=== PATIENT | male | born 1955 | race Hispanic/Latino ===

== ENCOUNTER 2016-06-19 13:41 | Outpatient (CLI) | payer MEDICARE ==
[2016-06-19 14:06] LABS: Basophils % (Auto) 0.5 % (0.0-1.8); Eosinophils % (Auto) 3.6 % (0.0-4.3); Hemoglobin 11.2 gm/dl (11.8-15.2); Mean Corpuscular HGB Conc 33 % (32-34); Mean Corpuscular Hemoglobin 31 pg (28-32); Mean Corpuscular Volume 95 fl (84-94); Platelet Count 157 K/mm3 (140-440); Red Blood Count 3.57 M/mm3 (3.65-5.03); Red Cell Distribution Width 15.1 % (13.2-15.2); White Blood Count 12.9 K/mm3 (4.5-11.0)
[2016-06-19 14:20] LABS: Albumin 3.8 g/dL (3.9-5); BUN/Creatinine Ratio 8.65; Calcium 9.9 mg/dL (8.4-10.2); Chloride 100.6 mmol/L (98-107); Phosphorous 4.4 mg/dL (2.5-4.5); Potassium 4.5 mmol/L (3.6-5.0)
--- NOTE | 2016-06-19 16:50 | Cat Scan Report ---
CT ABDOMEN AND PELVIS WITHOUT CONTRAST INDICATION: Gaseous abdominal distention. COMPARISON: 05/02/2011 FINDINGS: Abdomen and pelvis CT performed following oral contrast only. LUNG BASES: Mild bibasilar scarring, including nonspecific right lower lobe approximately 2.5 cm groundglass opacity partially imaged as on axial series 2, image 3, amongst others. Normal heart size. Few coronary calcifications. Nonspecific distal esophageal wall thickening, not excluded for gastroesophageal reflux and/or hiatal hernia, amongst others. Approximately 9 mm right paraesophageal soft tissue density, possibly a lymph node on axial series 2, image 33. ABDOMEN: Please note that sensitivity to detect small visceral lesions is limited due to the absence of intravenous contrast. Lobulated, atrophic bilateral kidneys with mild perinephric stranding and numerous bilateral renal hypodensities/cysts, the largest partly exophytic on the left measuring up to approximately 1.2 cm now noted, axial image 87, series 2. Extrarenal pelvis on the right may also be noted. Interval removal of bilateral double-J ureteral stents. Otherwise grossly unremarkable unenhanced liver, spleen, gallbladder, pancreas, adrenals, nonaneurysmal abdominal aorta with atherosclerotic aortic calcifications and the IVC. Few small, predominantly subcentimeter retroperitoneal and mesenteric lymph nodes. No ascites. Opacified GI tract nonobstructive. Normal appendix. Mild to moderate colonic stool/possible constipation. PELVIS: Grossly unremarkable seminal vesicles and non-opacified urinary bladder and rectosigmoid. Stable probable TURP. Few small prostatic calcifications. Small phleboliths. No free fluid or significant adenopathy. Advanced multilevel degenerative changes along the imaged spine have progressed, including extensive diffuse lumbar disc narrowing with vacuum phenomenon as also degenerative spurring and multilevel Schmorl's nodes with sclerosis. Some similar changes along the lower thoracic spine may also be noted. Mild dextroscoliosis apex about L1-L2 as well. CONCLUSION: 1. No acute abdominal CT abnormality or evidence of bowel obstruction. Mild constipation may be correlated for clinically in an appropriate setting. 2. Various other incidental findings, including those at the lung bases, atrophic kidneys with innumerable cysts, normal appendix, possible prior TURP and advanced multilevel spinal degenerative changes, amongst others, as detailed above. Thank you for the opportunity to participate in this patient's care.
== END 2016-06-19 13:42 | disposition home or self-care (01) ==
LOC: CT 13:41
PROVIDERS: ATTEND Internal Medicine Nephrology
DX: N18.5 Chronic kidney disease, stage 5 (principal); D63.1 Anemia in chronic kidney disease; N28.1 Cyst of kidney, acquired; I70.0 Atherosclerosis of aorta; R14.0 Abdominal distension (gaseous); J20.8 Acute bronchitis due to other specified organisms; N25.81 Secondary hyperparathyroidism of renal origin; F17.200 Nicotine dependence, unspecified, uncomplicated; R40.0 Somnolence; I25.10 Atherosclerotic heart disease of native coronary artery without angina pectoris; K21.9 Gastro-esophageal reflux disease without esophagitis; K44.9 Diaphragmatic hernia without obstruction or gangrene; N26.1 Atrophy of kidney (terminal); N42.89 Other specified disorders of prostate; I87.8 Other specified disorders of veins; M47.896 Other spondylosis, lumbar region; M41.86 Other forms of scoliosis, lumbar region; R60.9 Edema, unspecified; Z98.890 Other specified postprocedural states
CPT/HCPCS: 36415; 74176; 80048; 82040; 84100; 85025

== ENCOUNTER 2016-12-14 17:46 | Outpatient (CLI) | payer MEDICARE ==
[2016-12-14 18:30] LABS: Basophils % (Auto) 0.3 % (0.0-1.8); Eosinophils % (Auto) 3.2 % (0.0-4.3); Hematocrit 32.5 % (35.5-45.6); Hemoglobin 10.6 gm/dl (11.8-15.2); Mean Corpuscular HGB Conc 33 % (32-34); Mean Corpuscular Hemoglobin 31 pg (28-32); Mean Corpuscular Volume 93 fl (84-94); Platelet Count 187 K/mm3 (140-440); Red Blood Count 3.47 M/mm3 (3.65-5.03); Red Cell Distribution Width 14.6 % (13.2-15.2); White Blood Count 9.6 K/mm3 (4.5-11.0)
[2016-12-14 18:34] LABS: Bilirubin,Urine NEG (Negative); Blood,Urine NEG (Negative); Ketones,Urine NEG (Negative); Leukocyte Esterase,Urine NEG (Negative); Nitrite,Urine NEG (Negative); Urobilinogen,Urine < 2.0 mg/dL (<2.0); WBC,Urine < 1.0 /HPF (0.0-6.0)
[2016-12-14 18:45] LABS: Albumin 3.8 g/dL (3.9-5); BUN/Creatinine Ratio 7.73; Calcium 10.6 mg/dL (8.4-10.2); Chloride 97.9 mmol/L (98-107); Potassium 4.4 mmol/L (3.6-5.0)
[2016-12-18 01:33] LABS: Vitamin D, 25-OH, Total 45 ng/mL (30-100)
== END 2016-12-14 17:47 | disposition home or self-care (01) ==
LOC: LAB 17:46
PROVIDERS: ATTEND Internal Medicine Nephrology
DX: I12.0 Hypertensive chronic kidney disease with stage 5 chronic kidney disease or end stage renal disease (principal); N18.5 Chronic kidney disease, stage 5; N25.81 Secondary hyperparathyroidism of renal origin; E83.52 Hypercalcemia; L29.9 Pruritus, unspecified; R94.6 Abnormal results of thyroid function studies; E78.00 Pure hypercholesterolemia, unspecified; I25.10 Atherosclerotic heart disease of native coronary artery without angina pectoris; J44.9 Chronic obstructive pulmonary disease, unspecified; J45.909 Unspecified asthma, uncomplicated; D64.9 Anemia, unspecified; F41.9 Anxiety disorder, unspecified; F17.200 Nicotine dependence, unspecified, uncomplicated
CPT/HCPCS: 36415; 80048; 81001; 82040; 82306; 82570; 83970; 84100; 84156; 84439; 84443; 85025

== ENCOUNTER 2017-01-19 17:35 | Emergency (ER) | payer MEDICARE ==
[2017-01-19 18:35] LABS: Eosinophils % (Auto) 3.5 % (0.0-4.3); Hematocrit 32.4 % (35.5-45.6); Hemoglobin 10.8 gm/dl (11.8-15.2); Mean Corpuscular HGB Conc 33 % (32-34); Mean Corpuscular Hemoglobin 31 pg (28-32); Mean Corpuscular Volume 92 fl (84-94); Platelet Count 198 K/mm3 (140-440); Red Blood Count 3.51 M/mm3 (3.65-5.03); Red Cell Distribution Width 15.2 % (13.2-15.2)
[2017-01-19 18:45] LABS: BUN/Creatinine Ratio 9.77; Calcium 10.9 mg/dL (8.4-10.2); Chloride 99.2 mmol/L (98-107); Potassium 4.9 mmol/L (3.6-5.0)
--- NOTE | 2017-01-19 23:51 | Emergency Department Report ---
ED General Adult HPI - General Chief complaint: Allergic Reaction Stated complaint: ALLERGIC REACTION TO MEDICATION Time Seen by Provider: 01/19/17 23:40 Source: patient, RN notes reviewed, old records reviewed Mode of arrival: Ambulatory Limitations: No Limitations - History of Present Illness Initial comments: This is a 61-year-old male, he is previously unknown to me. He reports a past medical history of hypertension, end-stage renal disease on dialysis, anxiety, multiple medication allergies, end-stage renal disease on dialysis, depression, anemia, AV fistula in the left upper extremity. The patient complains of painful rash on the dorsal aspect of his right foot, he reports that he saw his primary care doctor, and he was given clindamycin. He reports that shortly after taking clindamycin, he developed a hoarse voice, chest tightness, sweating on his face, numbness on his fingertips, numbness on his toes, and abdominal cramping. The chest tightness does not radiate to the back, arms and neck. Patient has chronic shortness of breath. There is no posterior leg pain. There is no posterior leg swelling. No recent trips greater than 4 hours. No recent hospital admissions. Patient is concerned that he has an allergic reaction. -: Gradual Location: chest, right, lower extremity Quality: aching Consistency: intermittent Improves with: none Worsens with: none Associated Symptoms: chest pain - Related Data Home Medications Medication Instructions Recorded Confirmed Last Taken Dutasteride [Avodart] 0.5 mg PO DAILY 07/29/15 08/03/15 01/19/17 Fluticasone [Flonase] 1 spray NS QDAY 07/29/15 08/03/15 01/19/17 Folic Acid/Vit B Comp W-C [Renal 1 cap PO QDAY 07/29/15 08/03/15 01/19/17 Caps] Furosemide [Lasix TAB] 40 mg PO QDAY PRN 07/29/15 08/03/15 01/19/17 Ipratropium [Atrovent NEB] 0.5 mg IH Q4HR 07/29/15 08/03/15 01/19/17 Methyldopa [Aldomet] 500 mg PO QID 07/29/15 08/03/15 01/20/17 01:10 Ondansetron [Zofran TAB] 4 mg PO Q8HR PRN 07/29/15 08/03/15 01/19/17 cloNIDine [Catapres] 0.3 mg PO BID 07/29/15 08/03/15 01/20/17 01:09 Doxycycline Hyclate [Doxycycline 100 mg PO BID 08/03/15 08/03/15 01/19/17 Hyclate CAP] Previous Rx's Medication Instructions Recorded Last Taken Type Fluticasone Propionate [Flovent 2 puff IH BID #1 disk.w.dev 11/11/13 01/19/17 Rx Diskus] Allopurinol [Zyloprim] 100 mg PO QDAY tablet 09/10/14 01/19/17 Rx Famotidine [Pepcid] 20 mg PO QAM #60 tablet 09/10/14 01/19/17 Rx LORazepam [Ativan] 0.5 mg PO TID PRN #30 tablet 09/10/14 01/19/17 Rx Pentoxifylline [TRENtal] 400 mg PO QDAY #30 tablet 09/10/14 01/19/17 Rx Tamsulosin [Flomax] 0.4 mg PO BID #60 capsule 09/10/14 01/19/17 Rx Terazosin HCl 10 mg PO QHS #30 capsule 09/10/14 01/19/17 Rx Tiotropium [Spiriva] 18 mcg IH QDAY #30 box 09/10/14 01/19/17 Rx Arformoterol Nebu [Brovana Nebu] 15 mcg IH Q12HRT ml 08/06/15 01/19/17 Rx Budesonide [Pulmicort Respules] 0.5 mg IH Q12HRT nebu 08/06/15 01/19/17 Rx ISOSORBIDE MONOnitrate [Imdur ER] 30 mg PO DAILY #30 tablet 08/06/15 01/19/17 Rx Metoprolol [Lopressor TAB] 100 mg PO BID #60 tablet 08/06/15 01/19/17 Rx Nicotine [Habitrol] 14 mg TD Q24H #30 patch 08/06/15 01/19/17 Rx HYDROcodone/APAP 5-325 [[place] 1 - 2 each PO Q6HR PRN #60 tablet 08/07/15 Rx 5/325] EPINEPHrine [Epipen 2-Ramon] 0.3 mg IM DAILY PRN #2 ml 01/20/17 Unknown Rx Triamcinolone 0.5% [Kenalog 0.5% 1 applic TP BID #1 tube 01/20/17 Unknown Rx CREAM] Allergies Allergy/AdvReac Type Severity Reaction Status Date / Time albuterol Allergy Swelling Verified 01/19/17 17:50 albuterol sulfate Allergy Hives Verified 01/19/17 17:50 [From Ventolin HFA] amlodipine Allergy Unknown Verified 01/19/17 17:50 amlodipine besylate Allergy Swelling Verified 01/19/17 17:50 [From Norvasc] captopril Allergy Swelling Verified 01/19/17 17:50 ceftriaxone sodium Allergy Rash Verified 01/19/17 17:50 [From Rocephin] fentanyl Allergy Unknown Verified 01/19/17 17:50 guaifenesin Allergy Unknown Verified 01/19/17 17:50 hydralazine [Hydralazine] Allergy Swelling Verified 01/19/17 17:50 latex Allergy Unknown Verified 01/19/17 17:50 levofloxacin Allergy Rash Verified 01/19/17 17:50 nebivolol HCl [From Bystolic] Allergy Swelling Verified 01/19/17 17:50 nitrofurantoin Allergy Unknown Verified 01/19/17 17:50 procaine HCl [From Novocain] Allergy Swelling Verified 01/19/17 17:50 pseudoephedrine Allergy Unknown Verified 01/19/17 17:50 doxycycline AdvReac Mild Nausea Verified 01/19/17 17:50 DYE Allergy Unknown Unknown Uncoded 01/19/17 17:50 ED Review of Systems ROS: Stated complaint: ALLERGIC REACTION TO MEDICATION Other details as noted in HPI Constitutional: denies: fever Eyes: denies: vision change ENT: denies: epistaxis Respiratory: denies: cough Gastrointestinal: as per HPI Musculoskeletal: back pain, arthralgia Skin: rash, lesions Neurological: denies: weakness Psychiatric: anxiety ED Past Medical Hx - Past Medical History Previous Medical History?: Yes Hx Hypertension: Yes Hx Heart Attack/AMI: No Hx Congestive Heart Failure: No Hx Diabetes: No Hx Deep Vein Thrombosis: No Hx Renal Disease: Yes Hx Seizures: No Hx Psychiatric Treatment: Yes (Depression) Hx Asthma: Yes Hx COPD: Yes (O2 DEPENDENT [address] RODRIGUEZ) Hx Tuberculosis: No Hx HIV: No Additional medical history: Anemia - Surgical History Past Surgical History?: Yes Hx Coronary Stent: No Hx Pacemaker: No Hx Internal Defibrillator: No Additional Surgical History: AVF L upper arm - Social History Smoking Status: Current Every Day Smoker Substance Use Type: None - Medications Home Medications: Home Medications Medication Instructions Recorded Confirmed Last Taken Type Fluticasone Propionate [Flovent 2 puff IH BID #1 disk.w.dev 11/11/13 08/03/15 Rx Diskus] Allopurinol [Zyloprim] 100 mg PO QDAY tablet 09/10/14 08/03/15 01/19/17 Rx Famotidine [Pepcid] 20 mg PO QAM #60 tablet 09/10/14 08/03/15 01/19/17 Rx LORazepam [Ativan] 0.5 mg PO TID PRN #30 tablet 09/10/14 08/03/15 01/19/17 Rx Pentoxifylline [TRENtal] 400 mg PO QDAY #30 tablet 09/10/14 08/03/15 01/19/17 Rx Tamsulosin [Flomax] 0.4 mg PO BID #60 capsule 09/10/14 08/03/15 01/19/17 Rx Terazosin HCl 10 mg PO QHS #30 capsule 09/10/14 08/03/15 01/19/17 Rx Tiotropium [Spiriva] 18 mcg IH QDAY #30 box 09/10/14 08/03/15 01/19/17 Rx Dutasteride [Avodart] 0.5 mg PO DAILY 07/29/15 08/03/15 01/19/17 History Fluticasone [Flonase] 1 spray NS QDAY 07/29/15 08/03/15 01/19/17 History Folic Acid/Vit B Comp W-C [Renal 1 cap PO QDAY 07/29/15 08/03/15 01/19/17 History Caps] Furosemide [Lasix TAB] 40 mg PO QDAY PRN 07/29/15 08/03/15 01/19/17 History Ipratropium [Atrovent NEB] 0.5 mg IH Q4HR 07/29/15 08/03/15 01/19/17 History Methyldopa [Aldomet] 500 mg PO QID 07/29/15 08/03/15 01/20/17 01:10 History Ondansetron [Zofran TAB] 4 mg PO Q8HR PRN 07/29/15 08/03/15 01/19/17 History cloNIDine [Catapres] 0.3 mg PO BID 07/29/15 08/03/15 01/20/17 01:09 History Doxycycline Hyclate [Doxycycline 100 mg PO BID 08/03/15 08/03/15 01/19/17 History Hyclate CAP] Arformoterol Nebu [Brovana Nebu] 15 mcg IH Q12HRT ml 08/06/15 01/19/17 Rx Budesonide [Pulmicort Respules] 0.5 mg IH Q12HRT nebu 08/06/15 01/19/17 Rx ISOSORBIDE MONOnitrate [Imdur ER] 30 mg PO DAILY #30 tablet 08/06/15 01/19/17 Rx Metoprolol [Lopressor TAB] 100 mg PO BID #60 tablet 08/06/15 01/19/17 Rx Nicotine [Habitrol] 14 mg TD Q24H #30 patch 08/06/15 01/19/17 Rx HYDROcodone/APAP 5-325 [[place] 1 - 2 each PO Q6HR PRN #60 tablet 08/07/15 Rx 5/325] EPINEPHrine [Epipen 2-Ramon] 0.3 mg IM DAILY PRN #2 ml 01/20/17 Unknown Rx Triamcinolone 0.5% [Kenalog 0.5% 1 applic TP BID #1 tube 01/20/17 Unknown Rx CREAM] ED Physical Exam - General Limitations: No Limitations General appearance: alert, in no apparent distress - Head Head exam: Present: atraumatic, normocephalic - Eye Eye exam: Present: normal appearance, PERRL, EOMI. Absent: nystagmus - ENT ENT exam: Present: normal exam, normal orophraynx, mucous membranes moist, normal external ear exam, other (the patient is speaking full sentences. There is no stridor or dysphonia. There is no swelling of the uvula. There is no elevation of the base of the tongue.) - Neck Neck exam: Present: normal inspection, full ROM. Absent: tenderness, meningismus - Respiratory Respiratory exam: Present: normal lung sounds bilaterally. Absent: respiratory distress, wheezes, rales, rhonchi, stridor, chest wall tenderness, accessory muscle use, decreased breath sounds, prolonged expiratory - Cardiovascular Cardiovascular Exam: Present: regular rate, normal rhythm, normal heart sounds. Absent: bradycardia, tachycardia, irregular rhythm, systolic murmur, diastolic murmur, rubs, gallop - GI/Abdominal GI/Abdominal exam: Present: soft, normal bowel sounds. Absent: distended, tenderness, guarding, rebound, rigid, pulsatile mass - Rectal Rectal exam: Present: deferred - Extremities Exam Extremities exam: Present: normal inspection, full ROM, tenderness (2+ pulses noted in the bilateral upper and lower extremities. On the dorsal aspect of the right foot, there are punctate erythematous lesions which are somewhat tender. There is no streaking, there is no induration, there is no crepitus. The compartments are soft.), normal capillary refill, other (there is a left upper extremity AV fistula with an appropriate thrill. There is no redness, pus or streaking). Absent: pedal edema, joint swelling, calf tenderness - Back Exam Back exam: Present: normal inspection, full ROM. Absent: tenderness, CVA tenderness (R), CVA tenderness (L), muscle spasm, paraspinal tenderness, vertebral tenderness - Neurological Exam Neurological exam: Present: alert, oriented X3, other (Extraocular movements intact. Tongue midline. No facial droop. Facial sensation intact to light touch in the V1, V2, V3 distribution bilaterally. 5 and 5 strength in 4 extremities.. Sensation is intact to light touch in 4 extremities.). Absent: motor sensory deficit - Psychiatric Psychiatric exam: Present: anxious - Skin Skin exam: Present: warm, rash, erythema ED Course Vital Signs 01/19/17 01/20/17 01/20/17 17:42 00:59 02:31 Temperature 97.6 F Pulse Rate 67 71 Respiratory 16 14 Rate Blood Pressure 177/100 Blood Pressure 220/100 187/98 [Right] O2 Sat by Pulse 99 98 Oximetry - Reevaluation(s) Reevaluation #1: 01/20/17 00:58 Blood pressure is elevated. Patient reports that he typically takes clonidine, 0.2 mg at 6 PM, along with 250 mg of methyldopa, neither of which he was able to take today secondary to being in the waiting room. Elevated blood pressure is appreciated, however this is a chronic issue, patient has had elevated blood pressure in the past. He will be given his clonidine and methyldopa doses now, and as per the [employer] clinical policy on asymptomatic hypertension: In patients with asymptomatic markedly elevated blood pressure, does ED medical intervention reduce rates of adverse outcomes? * Level A recommendations. None specified. * Level B recommendations. None specified. * Level C recommendations. (1) In patients with asymptomatic markedly elevated blood pressure, routine ED medical intervention is not required. (2) In select patient populations (e.g, poor follow-up), emergency physicians may treat markedly elevated blood pressure in the ED and/or initiate therapy for long-term control. [Consensus recommendation] (3) Patients with asymptomatic markedly elevated blood pressure should be referred for outpatient follow-up. [Consensus recommendation] ED Medical Decision Making - Lab Data Result diagrams: 01/19/17 18:06 01/19/17 18:06 Vital Signs 01/19/17 17:42 Temperature 97.6 F Pulse Rate 67 Respiratory 16 Rate Blood Pressure 177/100 O2 Sat by Pulse 99 Oximetry Labs 01/19/17 01/19/17 01/19/17 18:06 18:06 21:40 WBC 9.0 RBC 3.51 L Hgb 10.8 L Hct 32.4 L MCV 92 MCH 31 MCHC 33 RDW 15.2 Plt Count 198 Lymph % (Auto) 33.0 Collin % (Auto) 6.6 Eos % (Auto) 3.5 Baso % (Auto) 3.0 H Lymph # 3.0 Collin # 0.6 Eos # 0.3 Baso # 0.3 H Seg Neutrophils % 53.9 Seg Neutrophils # 4.9 Sodium 139 Potassium 4.9 Chloride 99.2 Carbon Dioxide 23 Anion Gap 22 BUN 44 H Creatinine 4.5 H Estimated GFR 13 BUN/Creatinine Ratio 9.77 Glucose 95 Calcium 10.9 H Troponin T 0.018 0.019 - EKG Data -: EKG Interpreted by Me - EKG Data 01/20/17 00:36 EKG #1 demonstrates normal sinus, 63 bpm, normal intervals, normal axis, not morphologically consistent with STEMI, high left ventricular voltage, there is no prior for comparison. EKG #2 demonstrates normal sinus, 73 bpm, high left ventricular voltage, normal axis, not morphologically consistent with STEMI - Radiology Data Radiology results: image reviewed interpreted by me: X-ray the chest is hyperinflated, demonstrates no acute disease or pathology. - Medical Decision Making Differential diagnosis: Allergic reaction, now resolved, pneumonia, acute coronary syndrome, dermatitis, venous stasis Assessment and plan: 61-year-old male with a primary complaint of right dorsal foot rash, punctate, erythematous, however not confluent, has chronic venous stasis in the bilateral lower extremities, I appreciate the patient has a mild degree of tenderness, but his physical exam does not appear to be consistent with cellulitis, and I believe it to be more consistent with dermatitis. Therefore, patient is discontinued from clindamycin. The patient is speaking in full sentences, has been observed in the ER for a prolonged period of time, and his had no clinical decompensation. There are no pulmonary embolus or DVT risk factors, he is low risk by well's criteria, patient is low risk by MAR score, he is low risk by heart score, troponins negative 2, EKG unremarkable 2, the patient has a significant anxiety component. Patient will be discharged at this time, he can follow-up with an outpatient paraeducator, for his chest pain he can follow up with either her primary care doctor or anesthesiology technologist. I don't believe the patient requires admission to the hospital for ACS risk stratification. Critical care attestation.: If time is entered above; I have spent that time in minutes in the direct care of this critically ill patient, excluding procedure time. ED Disposition Clinical Impression: Rash, Anxiety, ESRD (end stage renal disease) Disposition: DC-01 TO HOME OR SELFCARE Is pt being admited?: No Does the pt Need Aspirin: No Condition: Stable Instructions: Stasis Dermatitis (ED) Additional Instructions: Rash on the dorsal right foot is most likely stasis dermatitis. Keep dry. Apply the triamcinolone cream as directed. Follow up with a paraeducator within the next 12-14 days. Please note that blood pressure was elevated in the emergency department. This needs to be followed up by a primary care doctor or nephrology specialist within the next 2 weeks. Long-term complications of hypertension/elevated blood pressure includes stroke, heart attack, disability, paralysis, loss of quality of life. Follow-up with a primary care doctor or your anesthesiology technologist within the next 3-5 days for your hypertension and chest pain. Discontinue clindamycin, at this point time, it is not necessary. He is the epinephrine pen if he develop inability to speak, inability to breathe , inability to form sentences. Return to the ER right away with pain, worsened pain, migration of pain, fevers, chills, intractable nausea or vomiting, inability to tolerate liquid feeds. Dr. Matias is a local clinical transformation specialist. Dr. Perdomo and Dr. Dominguez are local medicaid collection specialist. Prescriptions: EPINEPHrine [Epipen 2-Ramon] 0.3 mg IM DAILY PRN #2 ml PRN Reason: Allergic Reaction Triamcinolone 0.5% [Kenalog 0.5% CREAM] 1 applic TP BID #1 tube Referrals: TAMARA JERONIMO MD [Primary Care Provider] - 3-5 Days PAOLA MATIAS MD [Staff Physician] - 3-5 Days OLIMPIA BURGESS MD [Staff Physician] - 3-5 Days JAY PERDOMO MD [Staff Physician] - 3-5 Days
[2017-01-20] MEDS ORDERED: CATAPRES PO ONE (00:56)
[2017-01-20] MEDS ORDERED: ALDOMET PO ONE ×2 (00:56→00:57)
[2017-01-20 02:31] VITALS: BP 187/98
--- NOTE | 2017-01-20 09:52 | XRay Report ---
CHEST TWO VIEWS: 01/19/17 23:56 CLINICAL: Chest tightness. COMPARISON: 11/26/14 FINDINGS: Normal heart and pulmonary vasculature.The lungs are hyperexpanded and hyperlucent. A benign calcified left lower lobe granuloma is more dense than on the prior exam. Lungs are otherwise clear.Stable chronic mild midthoracic anterior wedge compression fractures and exaggerated thoracic kyphosis. Degenerative change in spine. IMPRESSION: COPD unchanged compared to the prior exam. No CHF or pneumonia. Benign left lower lobe granuloma.
== END 2017-01-20 02:36 | disposition home or self-care (01) ==
LOC: ED 17:35
DX: I12.0 Hypertensive chronic kidney disease with stage 5 chronic kidney disease or end stage renal disease (principal); N18.6 End stage renal disease; F41.9 Anxiety disorder, unspecified; F32.9 Major depressive disorder, single episode, unspecified; R21 Rash and other nonspecific skin eruption; J45.909 Unspecified asthma, uncomplicated; D64.9 Anemia, unspecified; F17.200 Nicotine dependence, unspecified, uncomplicated; Z91.040 Latex allergy status; Z88.8 Allergy status to other drugs, medicaments and biological substances; Z88.1 Allergy status to other antibiotic agents; Z91.041 Radiographic dye allergy status; Z99.2 Dependence on renal dialysis
CPT/HCPCS: 36415; 71020; 80048; 84484; 85025; 93005; 93010

== ENCOUNTER 2017-03-06 12:13 | Outpatient (CLI) | payer MEDICARE ==
--- NOTE | 2017-03-06 13:07 | XRay Report ---
Left knee: Knee pain. There is a large suprapatellar effusion. The soft tissues otherwise appear generally unremarkable. The bones are well-mineralized. There is a normal alignment of the knee joint and the articular surfaces are smooth. The joint spaces are preserved. Impressions: Nonspecific joint effusion.
--- NOTE | 2017-03-06 13:36 | XRay Report ---
RIGHT SHOULDER: Pain. Routine views demonstrate normal bony and soft tissue structures with normal joint alignment of the shoulder. IMPRESSION: Normal study.
== END 2017-03-06 12:14 | disposition home or self-care (01) ==
LOC: XRAY 12:13
PROVIDERS: ATTEND Internal Medicine Nephrology
DX: M25.462 Effusion, left knee (principal); M25.511 Pain in right shoulder

== ENCOUNTER 2017-04-20 13:50 | Outpatient (CLI) | payer MEDICARE ==
--- NOTE | 2017-04-20 15:09 | Fluoroscopy Report ---
Barium swallow with barium tablet: History: Chronic active hepatitis. Findings: Transit of barium through the esophagus appears normal in upright position and on oblique position with delayed in supine position to the GE junction . Gastroesophageal junction is above the level of the diaphragm due to presence of hernia. Evidence of esophagitis noted at the distal esophagus adjacent to the hernia. There is marked delay in transit of ingested tablet through the gastroesophageal junction probably associated with spasm. Impression: Hiatal hernia with evidence of esophagitis and spasm distal esophagus causing delayed transit of ingested tablet through the gastroesophageal junction.
== END 2017-04-20 13:51 | disposition home or self-care (01) ==
LOC: FLUORO 13:50
PROVIDERS: ATTEND Internal Medicine Gastroenterology
DX: K73.2 Chronic active hepatitis, not elsewhere classified (principal); K44.9 Diaphragmatic hernia without obstruction or gangrene; K20.9 Esophagitis, unspecified; R13.14 Dysphagia, pharyngoesophageal phase; F17.200 Nicotine dependence, unspecified, uncomplicated
CPT/HCPCS: 74220

== ENCOUNTER 2017-06-01 13:45 | Outpatient (CLI) | payer MEDICARE ==
--- NOTE | 2017-06-02 09:42 | Ultrasound Report ---
RENAL ULTRASOUND: 06/01/17 13:30:00 CLINICAL: Renal insufficiency. COMPARISON: 03/28/16 FINDINGS: High resolution ultrasound demonstrated normal nondilated renal collecting systems and ureters. Bilateral echogenic kidneys with irregular contours and somewhat poorly defined margins. Prominent bilateral medullary pyramids and a few small bilateral renal cysts. A single echogenic focus in the lower midportion of the right kidney is suggestive of a calculus measuring 5 mm. However it is not duplicated on multiple views. The right kidney measures 9.7 x 6.0 x 6.4-cm. The renal parenchyma measures 1.2-cm in thickness. The left kidney measures 6.6 x 4.6 x 3.8-cm. The renal parenchyma measures 1.1-cm in thickness. Small unremarkable urinary bladder. IMPRESSION: Severe bilateral medical renal disease without hydronephrosis. Bilateral renal parenchymal loss and scarring. Possible 5 mm nonobstructive calculus in the lower midportion of the right kidney. A few small bilateral renal cysts.
== END 2017-06-01 13:46 | disposition home or self-care (01) ==
LOC: CT 13:45
PROVIDERS: ATTEND Urology
DX: N28.1 Cyst of kidney, acquired (principal); N28.9 Disorder of kidney and ureter, unspecified; I25.10 Atherosclerotic heart disease of native coronary artery without angina pectoris; J44.9 Chronic obstructive pulmonary disease, unspecified; J45.909 Unspecified asthma, uncomplicated; F17.200 Nicotine dependence, unspecified, uncomplicated
CPT/HCPCS: 76770

== ENCOUNTER 2017-06-22 15:22 | Outpatient (CLI) | payer MEDICARE ==
[2017-06-22 15:43] LABS: Hematocrit 30.4 % (35.5-45.6); Mean Corpuscular HGB Conc 33 % (32-34); Mean Corpuscular Hemoglobin 31 pg (28-32); Mean Corpuscular Volume 96 fl (84-94); Platelet Count 173 K/mm3 (140-440); Red Blood Count 3.18 M/mm3 (3.65-5.03); Red Cell Distribution Width 14.6 % (13.2-15.2)
[2017-06-22 15:47] LABS: Bilirubin,Urine NEG (Negative); Blood,Urine NEG (Negative); Color,Urine Yellow (Yellow); Nitrite,Urine NEG (Negative); Urobilinogen,Urine < 2.0 mg/dL (<2.0); WBC,Urine < 1.0 /HPF (0.0-6.0)
[2017-06-22 16:13] LABS: Albumin 3.6 g/dL (3.9-5); Calcium 9.6 mg/dL (8.4-10.2)
[2017-06-22 16:21] LABS: Creatinine,Urine 57.3 mg/dL (0.1-20.0); Protein/Creatinine Ratio,Urine 1.52
== END 2017-06-22 15:23 | disposition home or self-care (01) ==
LOC: LAB 15:22
PROVIDERS: ATTEND Internal Medicine Nephrology
DX: I12.0 Hypertensive chronic kidney disease with stage 5 chronic kidney disease or end stage renal disease (principal); N18.5 Chronic kidney disease, stage 5; N25.81 Secondary hyperparathyroidism of renal origin; E83.52 Hypercalcemia; L29.9 Pruritus, unspecified; F17.200 Nicotine dependence, unspecified, uncomplicated; Z79.899 Other long term (current) drug therapy
CPT/HCPCS: 36415; 80048; 81001; 82040; 82306; 82570; 83970; 84100; 84156; 85027

== ENCOUNTER 2018-01-25 15:58 | Outpatient (CLI) | payer OTHER, MEDICARE ==
[2018-01-25 16:36] LABS: Basophils # (Auto) 0.1 K/mm3 (0.0-0.1); Basophils % (Auto) 0.9 % (0.0-1.8); Eosinophils # (Auto) 0.2 K/mm3 (0.0-0.4); Eosinophils % (Auto) 1.8 % (0.0-4.3); Hematocrit 36.2 % (35.5-45.6); Hemoglobin 11.9 gm/dl (11.8-15.2); Lymphocytes % (Auto) 26.2 % (13.4-35.0); Mean Corpuscular HGB Conc 33 % (32-34); Mean Corpuscular Hemoglobin 33 pg (28-32); Mean Corpuscular Volume 100 fl (84-94); Monocytes # (Auto) 0.7 K/mm3 (0.0-0.8); Monocytes % (Auto) 6.2 % (0.0-7.3); Platelet Count 140 K/mm3 (140-440); Red Blood Count 3.64 M/mm3 (3.65-5.03); Red Cell Distribution Width 16.3 % (13.2-15.2)
[2018-01-25 16:45] LABS: Creatinine 24 Hour,Urine 0.9 (0.8-2.8); Creatinine,Urine 40.9 mg/dL (0.1-20.0)
[2018-01-25 16:46] LABS: Albumin 3.9 g/dL (3.9-5)
[2018-01-25 16:46] LABS: Creatinine,Urine 42.8 mg/dL (0.1-20.0); Protein/Creatinine Ratio,Urine 1.24
== END 2018-01-25 15:59 | disposition home or self-care (01) ==
LOC: LAB 15:58
PROVIDERS: ATTEND Internal Medicine
DX: I12.0 Hypertensive chronic kidney disease with stage 5 chronic kidney disease or end stage renal disease (principal); N18.6 End stage renal disease; I25.10 Atherosclerotic heart disease of native coronary artery without angina pectoris; K21.9 Gastro-esophageal reflux disease without esophagitis; J44.9 Chronic obstructive pulmonary disease, unspecified; F17.210 Nicotine dependence, cigarettes, uncomplicated
CPT/HCPCS: 36415; 80048; 82040; 82570; 84100; 84156; 85025

== ENCOUNTER 2018-08-06 16:17 | Outpatient (CLI) | payer MEDICARE ==
[2018-08-06 17:09] LABS: Hematocrit 31.3 % (35.5-45.6); Hemoglobin 10.5 gm/dl (11.8-15.2)
[2018-08-06 17:32] LABS: Albumin 3.5 g/dL (3.9-5); Calcium 10.2 mg/dL (8.4-10.2)
== END 2018-08-06 16:18 | disposition home or self-care (01) ==
LOC: LAB 16:17
PROVIDERS: ATTEND Internal Medicine Nephrology
DX: I12.0 Hypertensive chronic kidney disease with stage 5 chronic kidney disease or end stage renal disease (principal); N18.6 End stage renal disease; N25.81 Secondary hyperparathyroidism of renal origin; E83.52 Hypercalcemia; K21.9 Gastro-esophageal reflux disease without esophagitis; J44.9 Chronic obstructive pulmonary disease, unspecified; Z87.891 Personal history of nicotine dependence
CPT/HCPCS: 36415; 80048; 82040; 83970; 84100; 85014; 85018

== ENCOUNTER 2018-10-22 16:09 | Outpatient (CLI) | payer MEDICARE ==
[2018-10-22 17:07] LABS: Hepatitis C Virus Antibody Reactive (NonReactive)
== END 2018-10-22 16:10 | disposition home or self-care (01) ==
LOC: LAB 16:09
PROVIDERS: ATTEND Internal Medicine Nephrology
DX: I12.0 Hypertensive chronic kidney disease with stage 5 chronic kidney disease or end stage renal disease (principal); N18.6 End stage renal disease; J43.9 Emphysema, unspecified; Z11.59 Encounter for screening for other viral diseases
CPT/HCPCS: 36415; 86705; 86706; 86803

== ENCOUNTER 2018-12-06 16:44 | Outpatient (CLI) | payer MEDICARE ==
[2018-12-06 17:26] LABS: Basophils # (Auto) 0.2 K/mm3 (0.0-0.1); Basophils % (Auto) 1.6 % (0.0-1.8); Eosinophils # (Auto) 0.6 K/mm3 (0.0-0.4); Eosinophils % (Auto) 5.3 % (0.0-4.3); Hemoglobin 9.8 gm/dl (11.8-15.2); Lymphocytes # (Auto) 4.2 K/mm3 (1.2-5.4); Lymphocytes % (Auto) 39.3 % (13.4-35.0); Mean Corpuscular HGB Conc 34 % (32-34); Mean Corpuscular Volume 96 fl (84-94); Monocytes # (Auto) 0.8 K/mm3 (0.0-0.8); Monocytes % (Auto) 7.1 % (0.0-7.3); Platelet Count 147 K/mm3 (140-440); Red Blood Count 3.03 M/mm3 (3.65-5.03); Red Cell Distribution Width 15.5 % (13.2-15.2)
[2018-12-06 17:40] LABS: Albumin 3.6 g/dL (3.9-5); Calcium 10.4 mg/dL (8.4-10.2)
[2018-12-06 17:41] LABS: Bilirubin,Urine NEG (Negative); Blood,Urine NEG (Negative); Color,Urine Yellow (Yellow); Mucus,Urine FEW /HPF; Urobilinogen,Urine < 2.0 mg/dL (<2.0); WBC,Urine < 1.0 /HPF (0.0-6.0)
== END 2018-12-06 16:45 | disposition home or self-care (01) ==
LOC: LAB 16:44
PROVIDERS: ATTEND Internal Medicine Nephrology
DX: I12.0 Hypertensive chronic kidney disease with stage 5 chronic kidney disease or end stage renal disease (principal); N18.6 End stage renal disease; K21.9 Gastro-esophageal reflux disease without esophagitis; J43.9 Emphysema, unspecified
CPT/HCPCS: 36415; 80048; 81001; 82040; 84100; 84156; 85025; 87086

== ENCOUNTER 2019-02-24 10:57 | Outpatient (CLI) | payer MEDICARE ==
[2019-02-24] MEDS ORDERED: XYLOCAINE TOPICAL 4% TP ONE (11:24)
== END 2019-02-24 10:58 | disposition home or self-care (01) ==
LOC: WOUND 10:57
PROVIDERS: ATTEND Surgery
DX: I87.332 Chronic venous hypertension (idiopathic) with ulcer and inflammation of left lower extremity (principal); L97.822 Non-pressure chronic ulcer of other part of left lower leg with fat layer exposed; I12.0 Hypertensive chronic kidney disease with stage 5 chronic kidney disease or end stage renal disease; N18.6 End stage renal disease; I87.2 Venous insufficiency (chronic) (peripheral); M10.9 Gout, unspecified; N40.0 Benign prostatic hyperplasia without lower urinary tract symptoms; J44.9 Chronic obstructive pulmonary disease, unspecified; K21.9 Gastro-esophageal reflux disease without esophagitis; F41.9 Anxiety disorder, unspecified; F32.9 Major depressive disorder, single episode, unspecified; F40.240 Claustrophobia; F17.290 Nicotine dependence, other tobacco product, uncomplicated
CPT/HCPCS: 11042; 11045; 87076; 87116; 87186; G0463; 99205; 99215

== ENCOUNTER 2019-03-10 13:19 | Outpatient (CLI) | payer MEDICARE | END 2019-03-10 13:20 | disposition home or self-care (01) | LOC: WOUND 13:19 | PROVIDERS: ATTEND Surgery | DX: L97.822 Non-pressure chronic ulcer of other part of left lower leg with fat layer exposed (principal); J44.9 Chronic obstructive pulmonary disease, unspecified; I12.0 Hypertensive chronic kidney disease with stage 5 chronic kidney disease or end stage renal disease; N18.6 End stage renal disease; I87.2 Venous insufficiency (chronic) (peripheral); M10.9 Gout, unspecified; F17.210 Nicotine dependence, cigarettes, uncomplicated ==

== ENCOUNTER 2019-03-17 12:54 | Outpatient (CLI) | payer MEDICARE ==
[2019-03-17] MEDS ORDERED: XYLOCAINE TOPICAL 4% TP ONE (13:26)
[2019-03-17] MEDS ORDERED: AD OINTMENT TP PRN (14:09)
== END 2019-03-17 12:55 | disposition home or self-care (01) ==
LOC: WOUND 12:54
PROVIDERS: ATTEND Surgery
DX: L97.822 Non-pressure chronic ulcer of other part of left lower leg with fat layer exposed (principal); I12.0 Hypertensive chronic kidney disease with stage 5 chronic kidney disease or end stage renal disease; N18.6 End stage renal disease; I87.2 Venous insufficiency (chronic) (peripheral); J44.9 Chronic obstructive pulmonary disease, unspecified; M10.9 Gout, unspecified; N40.0 Benign prostatic hyperplasia without lower urinary tract symptoms
CPT/HCPCS: A6250

== ENCOUNTER 2019-03-24 12:45 | Outpatient (CLI) | payer MEDICARE ==
[2019-03-24] MEDS ORDERED: XYLOCAINE TOPICAL 4% TP ONE (13:03)
[2019-03-24] MEDS ORDERED: SILVER NITRATE TP ONE (13:03)
[2019-03-24] MEDS ORDERED: AD OINTMENT TP PRN (13:27)
== END 2019-03-24 12:46 | disposition home or self-care (01) ==
LOC: WOUND 12:45
PROVIDERS: ATTEND Surgery
DX: L97.822 Non-pressure chronic ulcer of other part of left lower leg with fat layer exposed (principal); I12.0 Hypertensive chronic kidney disease with stage 5 chronic kidney disease or end stage renal disease; N18.6 End stage renal disease; I87.2 Venous insufficiency (chronic) (peripheral); J44.9 Chronic obstructive pulmonary disease, unspecified; M10.9 Gout, unspecified; N40.0 Benign prostatic hyperplasia without lower urinary tract symptoms
CPT/HCPCS: A6250

== ENCOUNTER 2019-03-31 12:55 | Outpatient (CLI) | payer MEDICARE ==
[2019-03-31] MEDS ORDERED: LIDOCAINE (4%) 40 MG/ML TOPICAL SOLN 50 ML BOTTLE TP ONE (13:30)
== END 2019-03-31 12:56 | disposition home or self-care (01) ==
LOC: WOUND 12:55
PROVIDERS: ATTEND Surgery
DX: L97.822 Non-pressure chronic ulcer of other part of left lower leg with fat layer exposed (principal); I12.0 Hypertensive chronic kidney disease with stage 5 chronic kidney disease or end stage renal disease; N18.6 End stage renal disease; I87.2 Venous insufficiency (chronic) (peripheral); J44.9 Chronic obstructive pulmonary disease, unspecified; M10.9 Gout, unspecified; N40.0 Benign prostatic hyperplasia without lower urinary tract symptoms

== ENCOUNTER 2019-04-14 13:03 | Outpatient (CLI) | payer MEDICARE ==
[2019-04-14] MEDS ORDERED: LIDOCAINE (4%) 40 MG/ML TOPICAL SOLN 50 ML BOTTLE TP ONE (14:02)
[2019-04-14] MEDS ORDERED: SODIUM CHLORIDE 0.9% IRR 500 ML BOTTLE IR ONE (14:09)
[2019-04-14] MEDS ORDERED: VITAMIN A & D OINT 56.7 GM TP SCH (15:00)
== END 2019-04-14 13:04 | disposition home or self-care (01) ==
LOC: WOUND 13:03
PROVIDERS: ATTEND Surgery
DX: L97.822 Non-pressure chronic ulcer of other part of left lower leg with fat layer exposed (principal); I12.0 Hypertensive chronic kidney disease with stage 5 chronic kidney disease or end stage renal disease; N18.6 End stage renal disease; I87.2 Venous insufficiency (chronic) (peripheral); J44.9 Chronic obstructive pulmonary disease, unspecified; M10.9 Gout, unspecified; N40.0 Benign prostatic hyperplasia without lower urinary tract symptoms

== ENCOUNTER 2019-05-07 14:15 | Outpatient (CLI) | payer MEDICARE ==
[2019-05-07 14:50] LABS: Hematocrit 25.9 % (35.5-45.6); Hemoglobin 8.3 gm/dl (11.8-15.2)
[2019-05-07 15:10] LABS: Albumin 3.5 g/dL (3.9-5); Calcium 10.2 mg/dL (8.4-10.2)
[2019-05-07 15:22] LABS: Hepatitis B Surface Antigen Non-Reactive (Negative); Hepatitis C Virus Antibody Reactive (NonReactive)
== END 2019-05-07 14:16 | disposition home or self-care (01) ==
LOC: LAB 14:15
PROVIDERS: ATTEND Internal Medicine Nephrology
DX: I12.0 Hypertensive chronic kidney disease with stage 5 chronic kidney disease or end stage renal disease (principal); N18.6 End stage renal disease; N25.81 Secondary hyperparathyroidism of renal origin; J44.9 Chronic obstructive pulmonary disease, unspecified; K21.9 Gastro-esophageal reflux disease without esophagitis; M10.9 Gout, unspecified; R94.5 Abnormal results of liver function studies
CPT/HCPCS: 36415; 80048; 80074; 82040; 83970; 84100; 85014; 85018

== ENCOUNTER 2019-05-19 10:01 | Outpatient (CLI) | payer MEDICARE ==
[2019-05-19] MEDS ORDERED: SODIUM CHLORIDE 0.9% IRR 500 ML BOTTLE IR ONE (10:11)
[2019-05-19] MEDS ORDERED: LIDOCAINE (4%) 40 MG/ML TOPICAL SOLN 50 ML BOTTLE TP ONE (10:30)
== END 2019-05-19 10:02 | disposition home or self-care (01) ==
LOC: WOUND 10:01
PROVIDERS: ATTEND Surgery
DX: L97.822 Non-pressure chronic ulcer of other part of left lower leg with fat layer exposed (principal); I12.0 Hypertensive chronic kidney disease with stage 5 chronic kidney disease or end stage renal disease; N18.6 End stage renal disease; I87.2 Venous insufficiency (chronic) (peripheral); J44.9 Chronic obstructive pulmonary disease, unspecified; M10.9 Gout, unspecified; N40.0 Benign prostatic hyperplasia without lower urinary tract symptoms
CPT/HCPCS: 87075; 87076; 87116; 87186

== ENCOUNTER 2019-05-23 15:13 | Outpatient (CLI) | payer MEDICARE ==
[2019-05-23 15:41] LABS: Basophils # (Auto) 0.1 K/mm3 (0.0-0.1); Basophils % (Auto) 1.1 % (0.0-1.8); Eosinophils # (Auto) 0.2 K/mm3 (0.0-0.4); Eosinophils % (Auto) 2.1 % (0.0-4.3); Hematocrit 27.7 % (35.5-45.6); Lymphocytes # (Auto) 1.8 K/mm3 (1.2-5.4); Lymphocytes % (Auto) 16.7 % (13.4-35.0); Mean Corpuscular HGB Conc 33 % (32-34); Mean Corpuscular Volume 91 fl (84-94); Monocytes # (Auto) 0.6 K/mm3 (0.0-0.8); Monocytes % (Auto) 5.4 % (0.0-7.3); Platelet Count 229 K/mm3 (140-440); Red Blood Count 3.04 M/mm3 (3.65-5.03); Red Cell Distribution Width 16.3 % (13.2-15.2)
[2019-05-23 15:46] LABS: Creatinine 24 Hour,Urine 0.8 (0.8-2.8); Creatinine,Urine 28.5 mg/dL (0.1-20.0)
[2019-05-23 15:54] LABS: Albumin 3.5 g/dL (3.9-5); Calcium 10.3 mg/dL (8.4-10.2)
[2019-05-23 16:48] LABS: Hepatitis B Surface Antigen Non-Reactive (Negative); Hepatitis C Virus Antibody Reactive (NonReactive)
== END 2019-05-23 15:14 | disposition home or self-care (01) ==
LOC: LAB 15:13
PROVIDERS: ATTEND Internal Medicine
DX: I12.0 Hypertensive chronic kidney disease with stage 5 chronic kidney disease or end stage renal disease (principal); N18.6 End stage renal disease; M10.9 Gout, unspecified; J44.9 Chronic obstructive pulmonary disease, unspecified; K21.9 Gastro-esophageal reflux disease without esophagitis; R94.5 Abnormal results of liver function studies; Z88.1 Allergy status to other antibiotic agents; Z88.8 Allergy status to other drugs, medicaments and biological substances
CPT/HCPCS: 36415; 80053; 80074; 82570; 84156; 85025

== ENCOUNTER 2019-06-05 13:46 | Outpatient (CLI) | payer MEDICARE ==
[2019-06-05 14:40] LABS: Albumin 3.4 g/dL (3.9-5); Calcium 10.3 mg/dL (8.4-10.2)
== END 2019-06-05 13:47 | disposition home or self-care (01) ==
LOC: LAB 13:46
PROVIDERS: ATTEND Student in an Organized Health Care Education/Training Program
DX: I13.2 Hypertensive heart and chronic kidney disease with heart failure and with stage 5 chronic kidney disease, or end stage renal disease (principal); N18.6 End stage renal disease; N25.81 Secondary hyperparathyroidism of renal origin; D63.1 Anemia in chronic kidney disease; E83.52 Hypercalcemia; L08.89 Other specified local infections of the skin and subcutaneous tissue; I73.9 Peripheral vascular disease, unspecified; Z72.0 Tobacco use
CPT/HCPCS: 36415; 80048; 82040; 84100

== ENCOUNTER 2019-06-27 12:59 | Outpatient (CLI) | payer MEDICARE ==
[2019-06-27] MEDS ORDERED: LIDOCAINE (4%) 40 MG/ML TOPICAL SOLN 50 ML BOTTLE TP ONE (13:01)
== END 2019-06-27 13:00 | disposition home or self-care (01) ==
LOC: WOUND 12:59
PROVIDERS: ATTEND Surgery
DX: L97.822 Non-pressure chronic ulcer of other part of left lower leg with fat layer exposed (principal); L97.522 Non-pressure chronic ulcer of other part of left foot with fat layer exposed; J44.9 Chronic obstructive pulmonary disease, unspecified; I12.0 Hypertensive chronic kidney disease with stage 5 chronic kidney disease or end stage renal disease; N18.6 End stage renal disease; I87.2 Venous insufficiency (chronic) (peripheral); M10.9 Gout, unspecified; F17.210 Nicotine dependence, cigarettes, uncomplicated; N40.0 Benign prostatic hyperplasia without lower urinary tract symptoms
CPT/HCPCS: 29581

== ENCOUNTER 2019-07-03 14:16 | Outpatient (CLI) | payer MEDICARE ==
[2019-07-03] MEDS ORDERED: VITAMIN A & D OINT 56.7 GM TP SCH (15:00)
== END 2019-07-03 14:17 | disposition home or self-care (01) ==
LOC: WOUND 14:16
PROVIDERS: ATTEND Surgery
DX: I87.332 Chronic venous hypertension (idiopathic) with ulcer and inflammation of left lower extremity (principal); L97.822 Non-pressure chronic ulcer of other part of left lower leg with fat layer exposed; L97.521 Non-pressure chronic ulcer of other part of left foot limited to breakdown of skin; I12.0 Hypertensive chronic kidney disease with stage 5 chronic kidney disease or end stage renal disease; N18.6 End stage renal disease; J44.9 Chronic obstructive pulmonary disease, unspecified; M10.9 Gout, unspecified; N40.0 Benign prostatic hyperplasia without lower urinary tract symptoms; F17.210 Nicotine dependence, cigarettes, uncomplicated
CPT/HCPCS: 29581; A6250

== ENCOUNTER 2019-07-07 13:47 | Outpatient (CLI) | payer MEDICARE ==
[2019-07-07] MEDS ORDERED: LIDOCAINE (4%) 40 MG/ML TOPICAL SOLN 50 ML BOTTLE TP ONE (14:15)
== END 2019-07-07 13:48 | disposition home or self-care (01) ==
LOC: WOUND 13:47
PROVIDERS: ATTEND Surgery
DX: I87.332 Chronic venous hypertension (idiopathic) with ulcer and inflammation of left lower extremity (principal); L97.822 Non-pressure chronic ulcer of other part of left lower leg with fat layer exposed; L97.521 Non-pressure chronic ulcer of other part of left foot limited to breakdown of skin; I12.0 Hypertensive chronic kidney disease with stage 5 chronic kidney disease or end stage renal disease; N18.6 End stage renal disease; J44.9 Chronic obstructive pulmonary disease, unspecified; M10.9 Gout, unspecified; N40.0 Benign prostatic hyperplasia without lower urinary tract symptoms; F17.210 Nicotine dependence, cigarettes, uncomplicated
CPT/HCPCS: 29581

== ENCOUNTER 2019-07-08 11:25 | Outpatient (CLI) | payer MEDICARE | END 2019-07-08 11:26 | disposition home or self-care (01) | LOC: WOUND 11:25 | PROVIDERS: ATTEND Surgery | DX: I87.332 Chronic venous hypertension (idiopathic) with ulcer and inflammation of left lower extremity (principal); L97.822 Non-pressure chronic ulcer of other part of left lower leg with fat layer exposed; L97.521 Non-pressure chronic ulcer of other part of left foot limited to breakdown of skin; I12.0 Hypertensive chronic kidney disease with stage 5 chronic kidney disease or end stage renal disease; N18.6 End stage renal disease; J44.9 Chronic obstructive pulmonary disease, unspecified; M10.9 Gout, unspecified; N40.0 Benign prostatic hyperplasia without lower urinary tract symptoms; F17.210 Nicotine dependence, cigarettes, uncomplicated | CPT/HCPCS: 29581 ==

== ENCOUNTER 2019-07-10 13:53 | Outpatient (CLI) | payer MEDICARE | END 2019-07-10 13:54 | disposition home or self-care (01) | LOC: WOUND 13:53 | PROVIDERS: ATTEND Surgery | DX: I87.332 Chronic venous hypertension (idiopathic) with ulcer and inflammation of left lower extremity (principal); L97.821 Non-pressure chronic ulcer of other part of left lower leg limited to breakdown of skin; L97.521 Non-pressure chronic ulcer of other part of left foot limited to breakdown of skin; I12.0 Hypertensive chronic kidney disease with stage 5 chronic kidney disease or end stage renal disease; N18.6 End stage renal disease; J44.9 Chronic obstructive pulmonary disease, unspecified; M10.9 Gout, unspecified; N40.0 Benign prostatic hyperplasia without lower urinary tract symptoms; F17.210 Nicotine dependence, cigarettes, uncomplicated | CPT/HCPCS: 29581 ==

== ENCOUNTER 2019-07-14 13:52 | Outpatient (CLI) | payer MEDICARE ==
[2019-07-14] MEDS ORDERED: LIDOCAINE (4%) 40 MG/ML TOPICAL SOLN 50 ML BOTTLE TP ONE (14:45)
[2019-07-14] MEDS ORDERED: SILVER NITRATE APPLICATOR 1 EA TP ONE (14:46)
== END 2019-07-14 13:53 | disposition home or self-care (01) ==
LOC: WOUND 13:52
PROVIDERS: ATTEND Surgery
DX: I87.332 Chronic venous hypertension (idiopathic) with ulcer and inflammation of left lower extremity (principal); L97.822 Non-pressure chronic ulcer of other part of left lower leg with fat layer exposed; L97.521 Non-pressure chronic ulcer of other part of left foot limited to breakdown of skin; I12.0 Hypertensive chronic kidney disease with stage 5 chronic kidney disease or end stage renal disease; N18.6 End stage renal disease; J44.9 Chronic obstructive pulmonary disease, unspecified; M10.9 Gout, unspecified; N40.0 Benign prostatic hyperplasia without lower urinary tract symptoms; F17.210 Nicotine dependence, cigarettes, uncomplicated
CPT/HCPCS: 29581

== ENCOUNTER 2019-07-18 10:43 | Outpatient (CLI) | payer MEDICARE | END 2019-07-18 10:44 | disposition home or self-care (01) | LOC: WOUND 10:43 | PROVIDERS: ATTEND Surgery | DX: I87.332 Chronic venous hypertension (idiopathic) with ulcer and inflammation of left lower extremity (principal); L97.821 Non-pressure chronic ulcer of other part of left lower leg limited to breakdown of skin; L97.521 Non-pressure chronic ulcer of other part of left foot limited to breakdown of skin; N18.6 End stage renal disease; I12.0 Hypertensive chronic kidney disease with stage 5 chronic kidney disease or end stage renal disease; J44.9 Chronic obstructive pulmonary disease, unspecified; M10.9 Gout, unspecified; N40.0 Benign prostatic hyperplasia without lower urinary tract symptoms; F17.210 Nicotine dependence, cigarettes, uncomplicated | CPT/HCPCS: 29581; 87076; 87116; 87186 ==

== ENCOUNTER 2019-07-21 13:54 | Outpatient (CLI) | payer MEDICARE ==
[2019-07-21] MEDS ORDERED: LIDOCAINE (4%) 40 MG/ML TOPICAL SOLN 50 ML BOTTLE TP ONE (14:30)
== END 2019-07-21 13:55 | disposition home or self-care (01) ==
LOC: WOUND 13:54
PROVIDERS: ATTEND Surgery
DX: I87.332 Chronic venous hypertension (idiopathic) with ulcer and inflammation of left lower extremity (principal); L97.822 Non-pressure chronic ulcer of other part of left lower leg with fat layer exposed; L97.522 Non-pressure chronic ulcer of other part of left foot with fat layer exposed; N18.6 End stage renal disease; I12.0 Hypertensive chronic kidney disease with stage 5 chronic kidney disease or end stage renal disease; J44.9 Chronic obstructive pulmonary disease, unspecified; M10.9 Gout, unspecified; N40.0 Benign prostatic hyperplasia without lower urinary tract symptoms; F17.210 Nicotine dependence, cigarettes, uncomplicated
CPT/HCPCS: 29581

== ENCOUNTER 2019-07-24 15:02 | Outpatient (CLI) | payer MEDICARE | END 2019-07-24 15:03 | disposition home or self-care (01) | LOC: WOUND 15:02 | PROVIDERS: ATTEND Surgery | DX: I87.332 Chronic venous hypertension (idiopathic) with ulcer and inflammation of left lower extremity (principal); L97.822 Non-pressure chronic ulcer of other part of left lower leg with fat layer exposed; L97.522 Non-pressure chronic ulcer of other part of left foot with fat layer exposed; N18.6 End stage renal disease; I12.0 Hypertensive chronic kidney disease with stage 5 chronic kidney disease or end stage renal disease; J44.9 Chronic obstructive pulmonary disease, unspecified; M10.9 Gout, unspecified; N40.0 Benign prostatic hyperplasia without lower urinary tract symptoms; F17.210 Nicotine dependence, cigarettes, uncomplicated | CPT/HCPCS: 29581 ==

== ENCOUNTER 2019-07-28 14:03 | Outpatient (CLI) | payer MEDICARE ==
[2019-07-28] MEDS ORDERED: LIDOCAINE (4%) 40 MG/ML TOPICAL SOLN 50 ML BOTTLE TP ONE (14:12)
== END 2019-07-28 14:04 | disposition home or self-care (01) ==
LOC: WOUND 14:03
PROVIDERS: ATTEND Surgery
DX: I87.332 Chronic venous hypertension (idiopathic) with ulcer and inflammation of left lower extremity (principal); L97.822 Non-pressure chronic ulcer of other part of left lower leg with fat layer exposed; L97.522 Non-pressure chronic ulcer of other part of left foot with fat layer exposed; N18.6 End stage renal disease; I12.0 Hypertensive chronic kidney disease with stage 5 chronic kidney disease or end stage renal disease; J44.9 Chronic obstructive pulmonary disease, unspecified; M10.9 Gout, unspecified; N40.0 Benign prostatic hyperplasia without lower urinary tract symptoms; F17.210 Nicotine dependence, cigarettes, uncomplicated
CPT/HCPCS: 29581

== ENCOUNTER 2019-07-28 15:39 | Outpatient (CLI) | payer MEDICARE ==
[2019-07-28 16:38] LABS: Albumin 3.7 g/dL (3.9-5); Calcium 10.6 mg/dL (8.4-10.2)
== END 2019-07-28 15:40 | disposition home or self-care (01) ==
LOC: LAB 15:39
PROVIDERS: ATTEND Student in an Organized Health Care Education/Training Program
DX: N18.6 End stage renal disease (principal); R53.1 Weakness; E87.2 Acidosis; N13.9 Obstructive and reflux uropathy, unspecified; N17.9 Acute kidney failure, unspecified
CPT/HCPCS: 36415; 80048; 82040; 84100

== ENCOUNTER 2019-08-04 13:42 | Outpatient (CLI) | payer MEDICARE ==
[2019-08-04] MEDS ORDERED: LIDOCAINE (4%) 40 MG/ML TOPICAL SOLN 50 ML BOTTLE TP ONE (13:44)
[2019-08-04] MEDS ORDERED: VITAMIN A & D OINT 56.7 GM TP SCH (15:00)
== END 2019-08-04 13:43 | disposition home or self-care (01) ==
LOC: WOUND 13:42
PROVIDERS: ATTEND Surgery
DX: I87.332 Chronic venous hypertension (idiopathic) with ulcer and inflammation of left lower extremity (principal); L97.822 Non-pressure chronic ulcer of other part of left lower leg with fat layer exposed; L97.522 Non-pressure chronic ulcer of other part of left foot with fat layer exposed; N18.6 End stage renal disease; I12.0 Hypertensive chronic kidney disease with stage 5 chronic kidney disease or end stage renal disease; J44.9 Chronic obstructive pulmonary disease, unspecified; M10.9 Gout, unspecified; N40.0 Benign prostatic hyperplasia without lower urinary tract symptoms; F17.210 Nicotine dependence, cigarettes, uncomplicated
CPT/HCPCS: 29581

== ENCOUNTER 2019-08-07 14:25 | Outpatient (CLI) | payer MEDICARE | END 2019-08-07 14:26 | disposition home or self-care (01) | LOC: WOUND 14:25 | PROVIDERS: ATTEND Surgery | DX: I87.332 Chronic venous hypertension (idiopathic) with ulcer and inflammation of left lower extremity (principal); L97.822 Non-pressure chronic ulcer of other part of left lower leg with fat layer exposed; L97.522 Non-pressure chronic ulcer of other part of left foot with fat layer exposed; N18.6 End stage renal disease; I12.0 Hypertensive chronic kidney disease with stage 5 chronic kidney disease or end stage renal disease; J44.9 Chronic obstructive pulmonary disease, unspecified; M10.9 Gout, unspecified; N40.0 Benign prostatic hyperplasia without lower urinary tract symptoms; F17.210 Nicotine dependence, cigarettes, uncomplicated | CPT/HCPCS: 29581 ==

== ENCOUNTER 2019-08-11 13:38 | Outpatient (CLI) | payer MEDICARE ==
[2019-08-11] MEDS ORDERED: LIDOCAINE (4%) 40 MG/ML TOPICAL SOLN 50 ML BOTTLE TP ONE (14:05)
[2019-08-11] MEDS ORDERED: SILVER NITRATE APPLICATOR 1 EA TP ONE (14:41)
== END 2019-08-11 13:39 | disposition home or self-care (01) ==
LOC: WOUND 13:38
PROVIDERS: ATTEND Surgery
DX: I87.332 Chronic venous hypertension (idiopathic) with ulcer and inflammation of left lower extremity (principal); L97.822 Non-pressure chronic ulcer of other part of left lower leg with fat layer exposed; L97.522 Non-pressure chronic ulcer of other part of left foot with fat layer exposed; N18.6 End stage renal disease; I12.0 Hypertensive chronic kidney disease with stage 5 chronic kidney disease or end stage renal disease; J44.9 Chronic obstructive pulmonary disease, unspecified; M10.9 Gout, unspecified; N40.0 Benign prostatic hyperplasia without lower urinary tract symptoms; F17.210 Nicotine dependence, cigarettes, uncomplicated
CPT/HCPCS: 15271; 15275; 15276; Q4196; 29581

== ENCOUNTER 2019-08-14 10:05 | Outpatient (CLI) | payer MEDICARE | END 2019-08-14 10:06 | disposition home or self-care (01) | LOC: WOUND 10:05 | PROVIDERS: ATTEND Surgery | DX: I87.332 Chronic venous hypertension (idiopathic) with ulcer and inflammation of left lower extremity (principal); L97.821 Non-pressure chronic ulcer of other part of left lower leg limited to breakdown of skin; L97.521 Non-pressure chronic ulcer of other part of left foot limited to breakdown of skin; I12.0 Hypertensive chronic kidney disease with stage 5 chronic kidney disease or end stage renal disease; N18.6 End stage renal disease; J44.9 Chronic obstructive pulmonary disease, unspecified; M10.9 Gout, unspecified; N40.0 Benign prostatic hyperplasia without lower urinary tract symptoms; F17.210 Nicotine dependence, cigarettes, uncomplicated | CPT/HCPCS: 29581 ==

== ENCOUNTER 2019-08-18 15:26 | Outpatient (CLI) | payer MEDICARE ==
[2019-08-18] MEDS ORDERED: LIDOCAINE (4%) 40 MG/ML TOPICAL SOLN 50 ML BOTTLE TP ONE (15:38)
[2019-08-18] MEDS ORDERED: SILVER NITRATE APPLICATOR 1 EA TP ONE (16:12)
== END 2019-08-18 15:27 | disposition home or self-care (01) ==
LOC: WOUND 15:26
PROVIDERS: ATTEND Surgery
DX: I87.332 Chronic venous hypertension (idiopathic) with ulcer and inflammation of left lower extremity (principal); L97.822 Non-pressure chronic ulcer of other part of left lower leg with fat layer exposed; L97.521 Non-pressure chronic ulcer of other part of left foot limited to breakdown of skin; I12.0 Hypertensive chronic kidney disease with stage 5 chronic kidney disease or end stage renal disease; N18.6 End stage renal disease; J44.9 Chronic obstructive pulmonary disease, unspecified; M10.9 Gout, unspecified; N40.0 Benign prostatic hyperplasia without lower urinary tract symptoms; F17.210 Nicotine dependence, cigarettes, uncomplicated
CPT/HCPCS: 15271; 15275; 15276; Q4196; 29581

== ENCOUNTER 2019-08-21 14:25 | Outpatient (CLI) | payer MEDICARE | END 2019-08-21 14:26 | disposition home or self-care (01) | LOC: WOUND 14:25 | PROVIDERS: ATTEND Surgery | DX: I87.332 Chronic venous hypertension (idiopathic) with ulcer and inflammation of left lower extremity (principal); L97.821 Non-pressure chronic ulcer of other part of left lower leg limited to breakdown of skin; L97.521 Non-pressure chronic ulcer of other part of left foot limited to breakdown of skin; I12.0 Hypertensive chronic kidney disease with stage 5 chronic kidney disease or end stage renal disease; N18.6 End stage renal disease; J44.9 Chronic obstructive pulmonary disease, unspecified; M10.9 Gout, unspecified; N40.0 Benign prostatic hyperplasia without lower urinary tract symptoms; F17.210 Nicotine dependence, cigarettes, uncomplicated | CPT/HCPCS: 29581 ==

== ENCOUNTER 2019-08-28 14:27 | Outpatient (CLI) | payer MEDICARE | END 2019-08-28 14:28 | disposition home or self-care (01) | LOC: WOUND 14:27 | PROVIDERS: ATTEND Surgery | DX: I87.332 Chronic venous hypertension (idiopathic) with ulcer and inflammation of left lower extremity (principal); L97.821 Non-pressure chronic ulcer of other part of left lower leg limited to breakdown of skin; L97.521 Non-pressure chronic ulcer of other part of left foot limited to breakdown of skin; I12.0 Hypertensive chronic kidney disease with stage 5 chronic kidney disease or end stage renal disease; N18.6 End stage renal disease; J44.9 Chronic obstructive pulmonary disease, unspecified; N40.0 Benign prostatic hyperplasia without lower urinary tract symptoms; F17.210 Nicotine dependence, cigarettes, uncomplicated | CPT/HCPCS: 29581 ==

== ENCOUNTER 2019-09-01 14:02 | Outpatient (CLI) | payer MEDICARE ==
[2019-09-01] MEDS ORDERED: LIDOCAINE (4%) 40 MG/ML TOPICAL SOLN 50 ML BOTTLE TP ONE (14:29)
== END 2019-09-01 14:03 | disposition home or self-care (01) ==
LOC: WOUND 14:02
PROVIDERS: ATTEND Surgery
DX: I87.332 Chronic venous hypertension (idiopathic) with ulcer and inflammation of left lower extremity (principal); L97.821 Non-pressure chronic ulcer of other part of left lower leg limited to breakdown of skin; L97.528 Non-pressure chronic ulcer of other part of left foot with other specified severity; S91.102D Unspecified open wound of left great toe without damage to nail, subsequent encounter; I12.0 Hypertensive chronic kidney disease with stage 5 chronic kidney disease or end stage renal disease; N18.6 End stage renal disease; J44.9 Chronic obstructive pulmonary disease, unspecified; N40.0 Benign prostatic hyperplasia without lower urinary tract symptoms; M10.9 Gout, unspecified; F17.210 Nicotine dependence, cigarettes, uncomplicated; X58.XXXD Exposure to other specified factors, subsequent encounter
CPT/HCPCS: 29581

== ENCOUNTER 2019-09-04 14:37 | Outpatient (CLI) | payer MEDICARE | END 2019-09-04 14:38 | disposition home or self-care (01) | LOC: WOUND 14:37 | PROVIDERS: ATTEND Surgery | DX: I87.332 Chronic venous hypertension (idiopathic) with ulcer and inflammation of left lower extremity (principal); L97.821 Non-pressure chronic ulcer of other part of left lower leg limited to breakdown of skin; S91.102D Unspecified open wound of left great toe without damage to nail, subsequent encounter; I12.0 Hypertensive chronic kidney disease with stage 5 chronic kidney disease or end stage renal disease; N18.6 End stage renal disease; J44.9 Chronic obstructive pulmonary disease, unspecified; N40.0 Benign prostatic hyperplasia without lower urinary tract symptoms; M10.9 Gout, unspecified; F17.210 Nicotine dependence, cigarettes, uncomplicated; X58.XXXD Exposure to other specified factors, subsequent encounter | CPT/HCPCS: 29581 ==

== ENCOUNTER 2019-09-08 14:00 | Outpatient (CLI) | payer MEDICARE ==
[2019-09-08] MEDS ORDERED: LIDOCAINE (4%) 40 MG/ML TOPICAL SOLN 50 ML BOTTLE TP ONE (14:07)
== END 2019-09-08 14:01 | disposition home or self-care (01) ==
LOC: WOUND 14:00
PROVIDERS: ATTEND Surgery
DX: I87.332 Chronic venous hypertension (idiopathic) with ulcer and inflammation of left lower extremity (principal); L97.822 Non-pressure chronic ulcer of other part of left lower leg with fat layer exposed; S91.102D Unspecified open wound of left great toe without damage to nail, subsequent encounter; I12.0 Hypertensive chronic kidney disease with stage 5 chronic kidney disease or end stage renal disease; N18.6 End stage renal disease; J44.9 Chronic obstructive pulmonary disease, unspecified; N40.0 Benign prostatic hyperplasia without lower urinary tract symptoms; M10.9 Gout, unspecified; F17.210 Nicotine dependence, cigarettes, uncomplicated; X58.XXXD Exposure to other specified factors, subsequent encounter
CPT/HCPCS: 15271; Q4196; 29581

== ENCOUNTER 2019-09-11 14:04 | Outpatient (CLI) | payer MEDICARE | END 2019-09-11 14:05 | disposition home or self-care (01) | LOC: WOUND 14:04 | PROVIDERS: ATTEND Surgery | DX: I87.332 Chronic venous hypertension (idiopathic) with ulcer and inflammation of left lower extremity (principal); L97.821 Non-pressure chronic ulcer of other part of left lower leg limited to breakdown of skin; S91.102D Unspecified open wound of left great toe without damage to nail, subsequent encounter; I12.0 Hypertensive chronic kidney disease with stage 5 chronic kidney disease or end stage renal disease; N18.6 End stage renal disease; J44.9 Chronic obstructive pulmonary disease, unspecified; N40.0 Benign prostatic hyperplasia without lower urinary tract symptoms; M10.9 Gout, unspecified; F17.210 Nicotine dependence, cigarettes, uncomplicated; X58.XXXD Exposure to other specified factors, subsequent encounter | CPT/HCPCS: 29581; G0463; 99213 ==

== ENCOUNTER 2019-09-15 14:03 | Outpatient (CLI) | payer MEDICARE ==
[2019-09-15] MEDS ORDERED: LIDOCAINE (4%) 40 MG/ML TOPICAL SOLN 50 ML BOTTLE TP ONE (14:05)
== END 2019-09-15 14:04 | disposition home or self-care (01) ==
LOC: WOUND 14:03
PROVIDERS: ATTEND Surgery
DX: I87.332 Chronic venous hypertension (idiopathic) with ulcer and inflammation of left lower extremity (principal); L97.821 Non-pressure chronic ulcer of other part of left lower leg limited to breakdown of skin; S91.102D Unspecified open wound of left great toe without damage to nail, subsequent encounter; I12.0 Hypertensive chronic kidney disease with stage 5 chronic kidney disease or end stage renal disease; N18.6 End stage renal disease; J44.9 Chronic obstructive pulmonary disease, unspecified; N40.0 Benign prostatic hyperplasia without lower urinary tract symptoms; M10.9 Gout, unspecified; F17.210 Nicotine dependence, cigarettes, uncomplicated; X58.XXXD Exposure to other specified factors, subsequent encounter
CPT/HCPCS: 99214; G0463

== ENCOUNTER 2019-10-06 11:11 | Outpatient (CLI) | payer MEDICARE ==
[2019-10-06] MEDS ORDERED: LIDOCAINE (4%) 40 MG/ML TOPICAL SOLN 50 ML BOTTLE TP ONE (11:16)
== END 2019-10-06 11:12 | disposition home or self-care (01) ==
LOC: WOUND 11:11
PROVIDERS: ATTEND Surgery
DX: I87.332 Chronic venous hypertension (idiopathic) with ulcer and inflammation of left lower extremity (principal); L97.821 Non-pressure chronic ulcer of other part of left lower leg limited to breakdown of skin; I12.0 Hypertensive chronic kidney disease with stage 5 chronic kidney disease or end stage renal disease; N18.6 End stage renal disease; J44.9 Chronic obstructive pulmonary disease, unspecified; N40.0 Benign prostatic hyperplasia without lower urinary tract symptoms; M10.9 Gout, unspecified; F17.210 Nicotine dependence, cigarettes, uncomplicated
CPT/HCPCS: 99214; G0463

== ENCOUNTER 2019-11-03 10:29 | Outpatient (CLI) | payer MEDICARE ==
[2019-11-03] MEDS ORDERED: LIDOCAINE (4%) 40 MG/ML TOPICAL SOLN 50 ML BOTTLE TP ONE (11:00)
== END 2019-11-03 10:30 | disposition home or self-care (01) ==
LOC: WOUND 10:29
PROVIDERS: ATTEND Surgery
DX: I87.332 Chronic venous hypertension (idiopathic) with ulcer and inflammation of left lower extremity (principal); L97.321 Non-pressure chronic ulcer of left ankle limited to breakdown of skin; I12.0 Hypertensive chronic kidney disease with stage 5 chronic kidney disease or end stage renal disease; N18.6 End stage renal disease; J44.9 Chronic obstructive pulmonary disease, unspecified; N40.0 Benign prostatic hyperplasia without lower urinary tract symptoms; M10.9 Gout, unspecified; F17.210 Nicotine dependence, cigarettes, uncomplicated
CPT/HCPCS: 99215; G0463

== ENCOUNTER 2019-12-29 09:38 | Outpatient (CLI) | payer MEDICARE ==
[2019-12-29] MEDS ORDERED: LIDOCAINE (4%) 40 MG/ML TOPICAL SOLN 50 ML BOTTLE TP ONE (09:48)
== END 2019-12-29 09:39 | disposition home or self-care (01) ==
LOC: WOUND 09:38
PROVIDERS: ATTEND Surgery
DX: I70.248 Atherosclerosis of native arteries of left leg with ulceration of other part of lower leg (principal); I70.243 Atherosclerosis of native arteries of left leg with ulceration of ankle; I70.245 Atherosclerosis of native arteries of left leg with ulceration of other part of foot; L97.521 Non-pressure chronic ulcer of other part of left foot limited to breakdown of skin; L97.321 Non-pressure chronic ulcer of left ankle limited to breakdown of skin; L97.821 Non-pressure chronic ulcer of other part of left lower leg limited to breakdown of skin; I12.0 Hypertensive chronic kidney disease with stage 5 chronic kidney disease or end stage renal disease; N18.6 End stage renal disease; J44.9 Chronic obstructive pulmonary disease, unspecified; N40.0 Benign prostatic hyperplasia without lower urinary tract symptoms; M10.9 Gout, unspecified; F17.210 Nicotine dependence, cigarettes, uncomplicated
CPT/HCPCS: 99215; G0463

== ENCOUNTER 2020-02-06 09:53 | Outpatient (CLI) | payer MEDICARE | END 2020-02-06 09:54 | disposition home or self-care (01) | LOC: WOUND 09:53 | PROVIDERS: ATTEND Surgery | DX: I70.244 Atherosclerosis of native arteries of left leg with ulceration of heel and midfoot (principal); L89.623 Pressure ulcer of left heel, stage 3; L97.421 Non-pressure chronic ulcer of left heel and midfoot limited to breakdown of skin; I12.0 Hypertensive chronic kidney disease with stage 5 chronic kidney disease or end stage renal disease; N18.6 End stage renal disease; J44.9 Chronic obstructive pulmonary disease, unspecified; N40.0 Benign prostatic hyperplasia without lower urinary tract symptoms; M10.9 Gout, unspecified; F17.210 Nicotine dependence, cigarettes, uncomplicated | CPT/HCPCS: 99213; G0463 ==

== ENCOUNTER 2020-02-11 08:51 | Outpatient (CLI) | payer MEDICARE ==
[2020-02-11] MEDS ORDERED: LIDOCAINE (4%) 40 MG/ML TOPICAL SOLN 50 ML BOTTLE TP SCH (10:00)
== END 2020-02-11 08:52 | disposition home or self-care (01) ==
LOC: WOUND 08:51
PROVIDERS: ATTEND Surgery
DX: I70.245 Atherosclerosis of native arteries of left leg with ulceration of other part of foot (principal); L97.522 Non-pressure chronic ulcer of other part of left foot with fat layer exposed; I70.248 Atherosclerosis of native arteries of left leg with ulceration of other part of lower leg; L97.821 Non-pressure chronic ulcer of other part of left lower leg limited to breakdown of skin; I70.244 Atherosclerosis of native arteries of left leg with ulceration of heel and midfoot; L89.629 Pressure ulcer of left heel, unspecified stage; L97.428 Non-pressure chronic ulcer of left heel and midfoot with other specified severity; I12.0 Hypertensive chronic kidney disease with stage 5 chronic kidney disease or end stage renal disease; N18.6 End stage renal disease; J44.9 Chronic obstructive pulmonary disease, unspecified; N40.0 Benign prostatic hyperplasia without lower urinary tract symptoms; M10.9 Gout, unspecified; F17.210 Nicotine dependence, cigarettes, uncomplicated

== ENCOUNTER 2020-02-18 10:27 | Outpatient (CLI) | payer MEDICARE ==
[2020-02-18] MEDS ORDERED: LIDOCAINE (4%) 40 MG/ML TOPICAL SOLN 50 ML BOTTLE TP SCH (10:30)
== END 2020-02-18 10:28 | disposition home or self-care (01) ==
LOC: WOUND 10:27
PROVIDERS: ATTEND Surgery
DX: I70.245 Atherosclerosis of native arteries of left leg with ulceration of other part of foot (principal); L97.522 Non-pressure chronic ulcer of other part of left foot with fat layer exposed; I70.248 Atherosclerosis of native arteries of left leg with ulceration of other part of lower leg; L97.821 Non-pressure chronic ulcer of other part of left lower leg limited to breakdown of skin; I12.0 Hypertensive chronic kidney disease with stage 5 chronic kidney disease or end stage renal disease; N18.6 End stage renal disease; I87.2 Venous insufficiency (chronic) (peripheral); J44.9 Chronic obstructive pulmonary disease, unspecified; N40.0 Benign prostatic hyperplasia without lower urinary tract symptoms; M10.9 Gout, unspecified; F17.210 Nicotine dependence, cigarettes, uncomplicated

== ENCOUNTER 2020-03-22 10:27 | Outpatient (CLI) | payer MEDICARE ==
[2020-03-22] MEDS ORDERED: LIDOCAINE (4%) 40 MG/ML TOPICAL SOLN 50 ML BOTTLE TP ONE (10:40)
== END 2020-03-22 10:28 | disposition home or self-care (01) ==
LOC: WOUND 10:27
PROVIDERS: ATTEND Surgery
DX: I70.245 Atherosclerosis of native arteries of left leg with ulceration of other part of foot (principal); L97.528 Non-pressure chronic ulcer of other part of left foot with other specified severity; I70.248 Atherosclerosis of native arteries of left leg with ulceration of other part of lower leg; L97.821 Non-pressure chronic ulcer of other part of left lower leg limited to breakdown of skin; I12.0 Hypertensive chronic kidney disease with stage 5 chronic kidney disease or end stage renal disease; N18.6 End stage renal disease; I87.2 Venous insufficiency (chronic) (peripheral); J44.9 Chronic obstructive pulmonary disease, unspecified; N40.0 Benign prostatic hyperplasia without lower urinary tract symptoms; M10.9 Gout, unspecified; F17.210 Nicotine dependence, cigarettes, uncomplicated
CPT/HCPCS: 99213; G0463